=== PATIENT | female | born 1935 | race Caucasian/White ===

== ENCOUNTER 2024-09-29 12:43 | Outpatient (CLI) | payer MEDICARE, OTHER | END 2024-09-29 12:44 | disposition home or self-care (01) | LOC: CSHMAMMO 12:43 | PROVIDERS: ATTEND Family Medicine | DX: Z12.31 Encounter for screening mammogram for malignant neoplasm of breast (principal) | CPT/HCPCS: 77063; 77067 ==

== ENCOUNTER 2024-10-11 09:42 | Outpatient (CLI) | payer OTHER | END 2024-10-11 09:43 | disposition home or self-care (01) | LOC: CSHMAMMO 09:42 | PROVIDERS: ATTEND Family Medicine | DX: M81.0 Age-related osteoporosis without current pathological fracture (principal); M85.851 Other specified disorders of bone density and structure, right thigh | CPT/HCPCS: 77080 ==